=== PATIENT | male | born 1975 | race Hispanic/Latino ===

== ENCOUNTER 2021-12-04 14:20 | Outpatient (CLI) | payer BC ==
[2021-12-04 15:39] LABS: Bilirubin Neg (Negative); Blood, Urine 10 (Negative); Clarity Clear (Clear); Glucose, Urine (Dipstick) Normal (Negative); Ketone, Urine Negative (Negative); Leukocyte Negative (Negative); Nitrite Negative (Negative); Protein, Urine (Dipstick) Negative (Neg-Trace); Specific Gravity, Urine 1.025 (1.002-1.036); Urobilinogen Normal mg/dL (Less than 2)
[2021-12-04 15:44] LABS: Hemoglobin 16.3 g/dL (13.5-17.5); Mean Corpuscular HGB CONC 34.1 g/dL (32.0-36.0); Mean Corpuscular Hemoglobin 29.9 pg (27.0-33.0); Mean Corpuscular Volume 87.5 fl (81.2-95.1); Mean Platelet Volume 11.2 fl (7.4-10.4); Platelet Count 148 10x3/uL (150-450); RBC Distribution Width 12.8 % (11.5-14.5); Red Blood Cell (RBC) Count 5.46 10x6/uL (4.32-5.72); White Blood Cell (WBC) Count 8.2 10x3/uL (3.5-10.5)
[2021-12-04 15:49] LABS: Bacteria/HPF None Seen HPF (None Seen); Squamous Epithelial 0-3 HPF (0-3); WBC/HPF 0-3 HPF (0-3)
[2021-12-04 15:56] LABS: INR-International Normal Ratio 0.9; PTT 25.1 sec (22.0-33.0); Prothrombin Time 10.4 sec (9.5-12.1)
[2021-12-04 16:08] LABS: Anion Gap 14 mmol/L (10-20); BUN (Urea Nitrogen) 18 mg/dL (8.9-20.6); Calc. Creatinine Clearance 0 mL/min (70-130); Calcium 9.2 mg/dL (7.8-10.44); Carbon Dioxide 28 mmol/L (22-29); Chloride 104 mmol/L (98-107); Glucose 99 mg/dL (70-105); Potassium 4.4 mmol/L (3.5-5.1); Sodium 142 mmol/L (136-145)
[2021-12-05 00:42] LABS: SARS-CoV-2 PCR by NAA Not Detected (NotDetected)
== END 2021-12-04 14:21 | disposition home or self-care (01) ==
LOC: LABBT 14:20
PROVIDERS: ATTEND Urology
DX: Z01.812 Encounter for preprocedural laboratory examination (principal); N48.1 Balanitis; N43.40 Spermatocele of epididymis, unspecified; N50.82 Scrotal pain; R39.15 Urgency of urination; R30.0 Dysuria; B35.6 Tinea cruris; Z20.822 Contact with and (suspected) exposure to COVID-19
CPT/HCPCS: 80048; 81001; 85027; 85610; 85730; 87086; U0003; U0005

== ENCOUNTER 2021-12-06 09:27 | Day surgery (SDC) | payer BC ==
[2021-12-05 10:39] VITALS: BMI 32.6
[2021-12-06] MEDS ORDERED: Bacitracin Zinc Ointment 30 gm TUBE ONE (09:54)
[2021-12-06] MEDS ORDERED: Bupivacaine 0.25% HCL 30 ML VIAL ONE (09:54)
[2021-12-06] MEDS ORDERED: Midazolam HCl 2 mg/2 ml Vial ONE ×2 (10:59→11:52)
[2021-12-06] MEDS ORDERED: ceFAZolin 2 GM/Dextrose 50 ML IVPB ONE (11:46)
[2021-12-06] MEDS ORDERED: Fentanyl 100 MCG/2 ML VIAL ONE ×2 (11:47→13:05)
[2021-12-06] MEDS ORDERED: PROPOFOL 200 MG/20 ML VIAL ONE (11:57)
[2021-12-06] MEDS ORDERED: Ondansetron PF 4 MG/2 ML Vial ONE (11:57)
[2021-12-06] MEDS ORDERED: Dexamethasone 20 MG/5 ML VIAL ONE (11:57)
[2021-12-06] MEDS ORDERED: Lidocaine 1% PF 5 ML VIAL ONE (11:57)
[2021-12-06] MEDS ORDERED: HYDROcodone/Acetaminophen 5/325 mg Tablet ONE (13:48)
== END 2021-12-06 14:45 | disposition home or self-care (01) ==
LOC: SDC 09:27
PROVIDERS: ATTEND Urology
PROC: 0VTTXZZ Resection of Prepuce, External Approach (ICD-10-PCS; principal; 2021-12-06)
DX: N48.1 Balanitis (principal); N43.40 Spermatocele of epididymis, unspecified; R39.15 Urgency of urination; Z87.891 Personal history of nicotine dependence
CPT/HCPCS: 88304; J0690; J1100; J2250; J2405; J2704; J3010; S0020